=== PATIENT | female | born 1950 | race Caucasian/White ===

== ENCOUNTER 2020-07-14 13:11 | Inpatient (IN) | payer BC, MEDICARE ==
[~2020-07-14] VITALS: Ht 160 cm; Wt 108.2 kg
[~2020-07-14 13:11] MED LIST: LISI40TA4 PO
[2020-07-14 14:03] LABS: BASOPHILS # (AUTO) 0.1 X10'3 (0-0.2); BASOPHILS % (AUTO) 0.9 % (0-1); EOSINOPHILS # (AUTO) 0.2 X10'3 (0-0.9); EOSINOPHILS % (AUTO) 1.6 % (0-6); HEMATOCRIT 40.7 % (35.0-45.0); HEMOGLOBIN 13.9 g/dl (12.0-16.0); LYMPHOCYTES # (AUTO) 2.8 X10'3 (1.1-4.8); LYMPHOCYTES % (AUTO) 28.2 % (21-51); MEAN CORPUSCULAR HEMOGLOBIN 29.8 PG (27.0-31.0); MEAN CORPUSCULAR HGB CONC 34.1 g/dL (33.0-36.5); MEAN CORPUSCULAR VOLUME 87.4 FL (78-98); MEAN PLATELET VOLUME 8.1 FL (7.4-10.4); MONOCYTES # (AUTO) 0.5 X10'3 (0-0.9); MONOCYTES % (AUTO) 4.7 % (2-12); NEUTROPHILS # (AUTO) 6.3 X10'3 (1.8-7.7); NEUTROPHILS % (AUTO) 64.6 % (42-75); PLATELET COUNT 268 X10'3 (140-440); RED BLOOD COUNT 4.66 X10'6 (4.20-5.60); RED CELL DISTRIBUTION WIDTH 13.3 % (11.5-14.5); WHITE BLOOD COUNT 9.8 X10'3 (4.5-11.0)
[2020-07-14 14:17] LABS: PARTIAL THROMBOPLASTIN TIME 29 SECONDS (22-32)
[2020-07-14 14:18] LABS: ALANINE AMINOTRANSFERASE 26 U/L (12-78); ALBUMIN 4.1 G/DL (3.4-5.0); ALBUMIN/GLOBULIN RATIO 1.1 (1.1-1.5); ALKALINE PHOSPHATASE 101 IU/L (46-116); ANION GAP 9 (8-16); ASPARTATE AMINO TRANSFERASE 17 U/L (10-37); BILIRUBIN,TOTAL 0.5 MG/DL (0.1-1.0); BLOOD UREA NITROGEN 19 MG/DL (7-18); BUN/CREATININE RATIO 18.6 (6.6-38.0); CHLORIDE 105 MMOL/L (99-107); CREATININE 1.02 MG/DL (0.40-0.90); GLUCOSE 86 MG/DL (70-104); POTASSIUM 3.9 MMOL/L (3.5-5.1); SODIUM 141 MMOL/L (135-145); TOTAL PROTEIN 7.9 G/DL (6.4-8.2); eGFR 53 ML/MIN
[2020-07-14 14:22] LABS: TROPONIN I < 0.04 NG/ML (0.0-0.05)
[2020-07-14] MEDS ORDERED: clopidogrel 75mg tablet PO ONE (15:45)
[2020-07-14] MEDS ORDERED: aspirin 325mg tablet PO ONE (15:45)
[2020-07-14] MEDS ORDERED: LISI-644 PO (16:08)
[2020-07-14] MEDS ORDERED: INDO50CA96 PO (17:05)
[2020-07-14] MEDS ORDERED: acetaminophen 650mg rectal suppository RC PRN (17:30)
[2020-07-14] MEDS ORDERED: acetaminophen 325mg tablet PO PRN ×2 (17:30)
[2020-07-14] MEDS ORDERED: magnesium hydroxide 30ml (MOM) UD suspension PO PRN (17:30)
[2020-07-14] MEDS ORDERED: magnesium Cl slow-release 64mg tablet PO PRN (17:30)
[2020-07-14] MEDS ORDERED: magnesium 4gm in 100ml NS 100 ML IV PRN (17:30)
[2020-07-14] MEDS ORDERED: diphenhydrAMINE 25mg capsule PO PRN (17:30)
[2020-07-14] MEDS ORDERED: magnesium 2GM in 50ml NS 50 ML IV PRN (17:30)
[2020-07-14] MEDS ORDERED: bisacodyl 10mg suppository rectal RC PRN (17:30)
[2020-07-14] MEDS ORDERED: ondansetron/PF 4mg/2ml inj IV PRN (17:30)
[2020-07-14] MEDS ORDERED: mag hydrox/Alum hydrox/simeth 30ml oral suspension PO PRN (17:30)
[2020-07-14] MEDS ORDERED: potassium Cl 20 mEq SR tablet PO PRN ×2 (17:30)
[2020-07-14] MEDS ORDERED: morphine 2 MG/ML inj. syringe IV PRN ×2 (17:30)
[2020-07-14] MEDS ORDERED: HYDROcodone/acetaminophen 5mg/325mg tablet PO PRN (17:30)
[2020-07-14] MEDS ORDERED: HYDROcodone/acetaminophen 10/325mg tab PO PRN (17:30)
[2020-07-14] MEDS ORDERED: potassium CL 10mEq/100ml bag 100 ML IV PRN ×2 (17:30)
[2020-07-14] MEDS ORDERED: atorvastatin 20mg tablet PO ONE (17:40)
[2020-07-14] MEDS ORDERED: iohexol 350MG/ML 100ml bottle IV ONE (17:41)
[2020-07-14 17:48] LABS: CLARITY,URINE SLIGHTLY CLOUDY (Clear); COLOR,URINE STRAW (Yellow); GLUCOSE, URINE NEGATIVE (Neg); KETONES,URINE NEGATIVE (Neg); LEUKOCYTE ESTERASE ,URINE MODERATE (Neg); NITRITES, URINE NEGATIVE (Neg); OCCULT BLOOD,URINE SMALL (Neg); PH,URINE 6.5 (4.8-8.0); PROTEIN,URINE NEGATIVE (Neg); UROBILINOGEN,URINE 0.2 E.U/dL (0.2-1.0)
[2020-07-14 17:50] LABS: UA COLLECTION TYPE CLN CATCH MIDSTREAM
[2020-07-14] MEDS: normal saline 1000ml 1,000 ML IV SCH (18:05)
[2020-07-14 18:07] LABS: CHOL/HDL RATIO 4.4 (0.00-4.99); CHOLESTEROL 202 MG/DL (0-200); HDL CHOLESTEROL 46 MG/DL (35-60); LDL CHOLESTEROL 140 MG/DL (50-100); TRIGLYCERIDES 152 MG/DL (20-135)
[2020-07-14 18:14] LABS: HEMOGLOBIN A1C 5.8 % (4.5-6.2)
[2020-07-14 18:15] LABS: BACTERIA,URINE FEW /HPF (Neg); MUCUS STRANDS NONE SEEN /LPF (Neg); SQUAMOUS EPITHELIAL CELL,UR FEW /LPF (FEW)
[2020-07-14] MEDS ORDERED: hydrALAZINE 20mg/ml inj. IV ONE (18:15)
[2020-07-14] MEDS ORDERED: hydrALAZINE 20mg/ml inj. IV PRN (18:20)
[2020-07-14 19:00] VITALS: BP 147/66
[2020-07-14] MEDS: K and/or MAG REPLACEMENT MC SCH (19:49)
[2020-07-14] MEDS: heparin, porcine 5000 units/ml vial SQ SCH (19:54)
[2020-07-14] MEDS: amLODIPine 5mg tablet PO SCH (21:36)
[2020-07-14] MEDS: chlorthalidone 25mg tablet PO SCH (21:37)
[2020-07-14 22:00] VITALS: BP 151/70
[2020-07-14] MEDS: CefTRIAXone/D5W-Rocephin 1gm 50 ML IV SCH (23:32)
[2020-07-15] VITALS (12 sets, daily range): BP systolic 120–187; BP diastolic 54–115
--- NOTE | 2020-07-15 03:41 | NUR ---
reviewed and agree with SRN assessment findings;
--- NOTE | 2020-07-15 03:42 | NUR ---
reviewed and agree with SRN assessment findings
[2020-07-15] MEDS: normal saline 1000ml 1,000 ML IV SCH ×2 (04:30→16:24)
[2020-07-15 06:12] LABS: BASOPHILS # (AUTO) 0.1 X10'3 (0-0.2); BASOPHILS % (AUTO) 0.7 % (0-1); EOSINOPHILS # (AUTO) 0.1 X10'3 (0-0.9); EOSINOPHILS % (AUTO) 1.3 % (0-6); HEMATOCRIT 37.4 % (35.0-45.0); HEMOGLOBIN 12.8 g/dl (12.0-16.0); LYMPHOCYTES # (AUTO) 2.6 X10'3 (1.1-4.8); LYMPHOCYTES % (AUTO) 25.2 % (21-51); MEAN CORPUSCULAR HGB CONC 34.4 g/dL (33.0-36.5); MEAN CORPUSCULAR VOLUME 87.3 FL (78-98); MEAN PLATELET VOLUME 8.4 FL (7.4-10.4); MONOCYTES # (AUTO) 0.5 X10'3 (0-0.9); MONOCYTES % (AUTO) 4.6 % (2-12); NEUTROPHILS # (AUTO) 7.1 X10'3 (1.8-7.7); NEUTROPHILS % (AUTO) 68.2 % (42-75); PLATELET COUNT 267 X10'3 (140-440); RED BLOOD COUNT 4.28 X10'6 (4.20-5.60); RED CELL DISTRIBUTION WIDTH 13.4 % (11.5-14.5); WHITE BLOOD COUNT 10.4 X10'3 (4.5-11.0)
[2020-07-15 06:28] LABS: ALANINE AMINOTRANSFERASE 19 U/L (12-78); ALBUMIN 3.5 G/DL (3.4-5.0); ALKALINE PHOSPHATASE 87 IU/L (46-116); ANION GAP 9 (8-16); ASPARTATE AMINO TRANSFERASE 12 U/L (10-37); BILIRUBIN,TOTAL 0.6 MG/DL (0.1-1.0); BLOOD UREA NITROGEN 16 MG/DL (7-18); CALCIUM 8.3 MG/DL (8.5-10.1); CHLORIDE 106 MMOL/L (99-107); CHOL/HDL RATIO 4.1 (0.00-4.99); CHOLESTEROL 178 MG/DL (0-200); CREATININE 0.89 MG/DL (0.40-0.90); GLUCOSE 104 MG/DL (70-104); HDL CHOLESTEROL 43 MG/DL (35-60); LDL CHOLESTEROL 127 MG/DL (50-100); PHOSPHORUS 3.6 MG/DL (2.3-4.5); POTASSIUM 3.6 MMOL/L (3.5-5.1); SODIUM 140 MMOL/L (135-145); TOTAL CARBON DIOXIDE 24.7 MMOL/L (24-32); TRIGLYCERIDES 121 MG/DL (20-135); eGFR 63 ML/MIN
--- NOTE | 2020-07-15 06:56 | NUR ---
Patient in room ORTHO 4020. I have received report from Christy Blake and had the opportunity to ask questions and assume patient care.
[2020-07-15] MEDS: aspirin 81mg tablet.DR PO SCH (07:26)
[2020-07-15] MEDS: chlorthalidone 25mg tablet PO SCH (07:26)
[2020-07-15] MEDS: atorvastatin 20mg tablet PO SCH (07:26)
[2020-07-15] MEDS: amLODIPine 5mg tablet PO SCH (07:27)
[2020-07-15] MEDS: heparin, porcine 5000 units/ml vial SQ SCH ×2 (07:28→20:17)
[2020-07-15] MEDS: CefTRIAXone/D5W-Rocephin 1gm 50 ML IV SCH (07:31)
[2020-07-15] MEDS ORDERED: lisinopril 20mg tablet PO SCH (08:00)
[2020-07-15] MEDS ORDERED: atorvastatin 10mg tablet PO SCH (08:00)
[2020-07-15] MEDS: K and/or MAG REPLACEMENT MC SCH ×2 (08:00→20:00)
[2020-07-15] MEDS ORDERED: lisinopril 20mg tablet PO ONE (12:40)
--- NOTE | 2020-07-15 15:00 | NUR ---
Orthostatic systolic Blood pressure drop greater than 20mmgh. informed. PAGER ID: [phone] MESSAGE: [facility]/neuro [id number]. Pt: Medardo. Rm: [id number]. FYI: Orthostatic SBP drop 29mmhg, with increased HR 67 to 81 from laying down to standing up. thanks
--- NOTE | 2020-07-15 17:51 | NUR ---
Blood pressure 182/81 HR 59 at rest. PRN Hydralazine given.
--- NOTE | 2020-07-15 18:33 | NUR ---
Problems reprioritized. Patient report given, questions answered & plan of care reviewed with GWYN Blake. Recheck BP 145/59 HR 66.
[2020-07-15] MEDS: lactobacillus rhamnosus 10,000 MMU CELLS/CAPSULE PO SCH (20:14)
[2020-07-16 02:00] VITALS: BP 156/61
--- NOTE | 2020-07-16 05:12 | NUR ---
reviewed and agree with SRN assessment
[2020-07-16 06:00] VITALS: BP 157/62
--- NOTE | 2020-07-16 06:24 | NUR ---
Problems reprioritized. Patient report given, questions answered & plan of care reviewed with GWYN Lemon.
[2020-07-16 06:36] LABS: BASOPHILS # (AUTO) 0.1 X10'3 (0-0.2); BASOPHILS % (AUTO) 0.8 % (0-1); EOSINOPHILS # (AUTO) 0.2 X10'3 (0-0.9); EOSINOPHILS % (AUTO) 1.6 % (0-6); HEMATOCRIT 39.3 % (35.0-45.0); HEMOGLOBIN 13.5 g/dl (12.0-16.0); LYMPHOCYTES # (AUTO) 2.9 X10'3 (1.1-4.8); LYMPHOCYTES % (AUTO) 25.5 % (21-51); MEAN CORPUSCULAR HEMOGLOBIN 30.2 PG (27.0-31.0); MEAN CORPUSCULAR HGB CONC 34.3 g/dL (33.0-36.5); MEAN CORPUSCULAR VOLUME 87.9 FL (78-98); MEAN PLATELET VOLUME 8.2 FL (7.4-10.4); MONOCYTES # (AUTO) 0.6 X10'3 (0-0.9); MONOCYTES % (AUTO) 5.2 % (2-12); NEUTROPHILS # (AUTO) 7.5 X10'3 (1.8-7.7); NEUTROPHILS % (AUTO) 66.9 % (42-75); PLATELET COUNT 271 X10'3 (140-440); RED BLOOD COUNT 4.47 X10'6 (4.20-5.60); RED CELL DISTRIBUTION WIDTH 13.7 % (11.5-14.5); WHITE BLOOD COUNT 11.3 X10'3 (4.5-11.0)
[2020-07-16 06:47] LABS: ALANINE AMINOTRANSFERASE 18 U/L (12-78); ALBUMIN 3.6 G/DL (3.4-5.0); ALKALINE PHOSPHATASE 89 IU/L (46-116); ANION GAP 9 (8-16); ASPARTATE AMINO TRANSFERASE 12 U/L (10-37); BILIRUBIN,TOTAL 0.8 MG/DL (0.1-1.0); BLOOD UREA NITROGEN 17 MG/DL (7-18); BUN/CREATININE RATIO 17.9 (6.6-38.0); CHLORIDE 106 MMOL/L (99-107); CREATININE 0.95 MG/DL (0.40-0.90); GLUCOSE 98 MG/DL (70-104); MAGNESIUM 2.1 MG/DL (1.5-2.4); PHOSPHORUS 3.6 MG/DL (2.3-4.5); POTASSIUM 3.7 MMOL/L (3.5-5.1); SODIUM 140 MMOL/L (135-145); TOTAL CARBON DIOXIDE 24.8 MMOL/L (24-32); TOTAL PROTEIN 7.1 G/DL (6.4-8.2); eGFR 58 ML/MIN
[2020-07-16] MEDS: CefTRIAXone/D5W-Rocephin 1gm 50 ML IV SCH (07:53)
[2020-07-16] MEDS: aspirin 81mg tablet.DR PO SCH (07:54)
[2020-07-16] MEDS: lactobacillus rhamnosus 10,000 MMU CELLS/CAPSULE PO SCH (07:54)
[2020-07-16] MEDS: chlorthalidone 25mg tablet PO SCH (07:54)
[2020-07-16] MEDS: atorvastatin 20mg tablet PO SCH (07:55)
[2020-07-16] MEDS: amLODIPine 5mg tablet PO SCH (07:55)
[2020-07-16] MEDS: heparin, porcine 5000 units/ml vial SQ SCH (07:56)
[2020-07-16] MEDS: K and/or MAG REPLACEMENT MC SCH (08:00)
[2020-07-16] MEDS ORDERED: lisinopril 20mg tablet PO SCH (08:00)
[2020-07-16 10:00] VITALS: BP 139/56
[2020-07-16] MEDS ORDERED: LISI-600 PO (10:16)
[2020-07-16] MEDS ORDERED: CHLO25TA11 PO (10:16)
[2020-07-16] MEDS ORDERED: ATOR20TA66 PO (10:16)
[2020-07-16] MEDS ORDERED: NOR5T PO (10:16)
[2020-07-16] MEDS ORDERED: CEFD300C3 PO (10:16)
[2020-07-16] MEDS ORDERED: ASPI-1071 PO (10:16)
[2020-07-16] MEDS ORDERED: LACT1CAP26 PO (10:16)
--- NOTE | 2020-07-16 11:30 | NUR ---
Received discharge orders per Dr. Avila. IV dc'd from RFA with cannula intact. Held pressure approximately 10 minutes. Applied bandaid. Reviewed discharge orders with patient. Discharge medications called to [facility] per pt request. Transported via w/c to front entrance and assisted pt into private vehicle driven by son.
--- NOTE | 2020-07-17 11:00 | NUR ---
Pt was discharged yesterday. Attempted to call in discharge medications to [facility], but they were closed. TC placed to [facility] and was informed they had received the RX for all of the discharge medications as they were transmitted to them yesterday.
== END 2020-07-16 11:25 | disposition home or self-care (01) | DRG 305 ==
LOC: ER 13:13 → ED HOLD 16:20 → OBSVTOIN 17:30 → ORTHO 4S 18:52
PROVIDERS: ADMIT Family Medicine; ATTEND Family Medicine
DX: I16.1 Hypertensive emergency (principal); N39.0 Urinary tract infection, site not specified; E78.5 Hyperlipidemia, unspecified; I10 Essential (primary) hypertension; M18.11 Unilateral primary osteoarthritis of first carpometacarpal joint, right hand; Z79.82 Long term (current) use of aspirin; Z79.899 Other long term (current) drug therapy; Z80.0 Family history of malignant neoplasm of digestive organs; Z80.49 Family history of malignant neoplasm of other genital organs; Z80.8 Family history of malignant neoplasm of other organs or systems; Z85.528 Personal history of other malignant neoplasm of kidney; Z86.73 Personal history of transient ischemic attack (TIA), and cerebral infarction without residual deficits; Z87.442 Personal history of urinary calculi
CPT/HCPCS: 36415; 70450; 70496; 70498; 70544; 70551; 71045; 80053; 80061; 81001; 82948; 83036; 83735; 84100; 84443; 84484; 85025; 85610; 85651; 85730; 87081; 87088; 93306; 93880; 97116; 97161; 97530; 99285; G0378; J0360; J0696; J1644; J7030; Q9967

== ENCOUNTER 2020-12-13 08:16 | Day surgery (SDC) | payer BC, MEDICARE ==
[2020-12-07 14:17] LABS: CLARITY,URINE SLIGHTLY CLOUDY (Clear); COLOR,URINE YELLOW (Yellow); GLUCOSE, URINE NEGATIVE (Neg); KETONES,URINE NEGATIVE (Neg); LEUKOCYTE ESTERASE ,URINE SMALL (Neg); NITRITES, URINE NEGATIVE (Neg); OCCULT BLOOD,URINE SMALL (Neg); PROTEIN,URINE NEGATIVE (Neg); UROBILINOGEN,URINE 0.2 E.U/dL (0.2-1.0)
[2020-12-07 14:19] LABS: UA COLLECTION TYPE CLN CATCH MIDSTREAM
[2020-12-07 14:22] LABS: BASOPHILS # (AUTO) 0.1 X10'3 (0-0.2); BASOPHILS % (AUTO) 0.8 % (0-1); EOSINOPHILS # (AUTO) 0.2 X10'3 (0-0.9); EOSINOPHILS % (AUTO) 2.3 % (0-6); LYMPHOCYTES % (AUTO) 30.3 % (21-51); MEAN CORPUSCULAR HEMOGLOBIN 30.2 PG (27.0-31.0); MEAN CORPUSCULAR HGB CONC 34.4 g/dL (33.0-36.5); MEAN PLATELET VOLUME 7.7 FL (7.4-10.4); MONOCYTES # (AUTO) 0.6 X10'3 (0-0.9); NEUTROPHILS # (AUTO) 6.1 X10'3 (1.8-7.7); NEUTROPHILS % (AUTO) 60.6 % (42-75); PRE OP HEMOGLOBIN 12.7 g/dL (12.0-16.0); PRE OP PLATELET COUNT 339 X10'3 (140-440); RED CELL DISTRIBUTION WIDTH 13.4 % (11.5-14.5)
[2020-12-07 14:25] LABS: BACTERIA,URINE 1+ /HPF (Neg); RENAL CELLS, URINE FEW /HPF; SQUAMOUS EPITHELIAL CELL,UR FEW /LPF (FEW); TRANSITIONAL EPI CELLS,URINE MODERATE /HPF; WBC CLUMPS,URINE FEW /HPF (NEGATIVE); WBC,URINE 0-4 /HPF (0-4)
[2020-12-07 14:31] LABS: PRE OP PROTIME 10.8 SECONDS (9.0-12.0)
[2020-12-07 14:34] LABS: ALBUMIN 3.7 G/DL (3.4-5.0); ALBUMIN/GLOBULIN RATIO 0.9 (1.1-1.5); ALKALINE PHOSPHATASE 108 IU/L (46-116); BLOOD UREA NITROGEN 23 MG/DL (7-18); BUN/CREATININE RATIO 22.3 (6.6-38.0); CALCIUM 9.4 MG/DL (8.5-10.1); CHLORIDE 103 MMOL/L (99-107); CREATININE 1.03 MG/DL (0.40-0.90); PRE OP ALT 30 U/L (30-65); PRE OP ANION GAP 11 (8-16); PRE OP AST 17 U/L (10-37); PRE OP BILIRUB, TOTAL 0.5 MG/DL (0.0-1.0); PRE OP GLUCOSE 103 MG/DL (70-104); PRE OP POTASSIUM 3.7 MMOL/L (3.4-5.1); PRE OP SODIUM 140 MMOL/L (135-145); TOTAL CARBON DIOXIDE 25.8 MMOL/L (24-32); TOTAL PROTEIN 7.8 G/DL (6.4-8.2); eGFR 53 ML/MIN
[2020-12-13] VITALS (19 sets, daily range): BP systolic 127–188; BP diastolic 54–99
[~2020-12-13] VITALS: Ht 160 cm; Wt 106.0 kg
[~2020-12-13 08:16] MED LIST changes: +APIX5TAB3 PO; +ATOR20TA66 PO; +CHLO25TA10 PO; +DILT-35 PO; +INDOCYANINE GREEN 25 MG/10 ML VIAL IV ONE; +LISI-600 PO; -LISI40TA4 PO; +ceFOXitin 2GM-NS 100mL ADDvant 100 ML IV ONE; +famotidine 20mg tablet PO ONE; +ringers solution, lacted 1,000 ML IV SCH
[2020-12-13] MEDS ORDERED: BUPIVAcaine/PF 2.5 mg/ml (0.25%) 30ml vial ONE (09:11)
[2020-12-13] MEDS ORDERED: ePHEDrine 50MG/ML INJ. ONE (09:35)
[2020-12-13] MEDS ORDERED: fentaNYL/PF 50MCG/1 ML 2ML syringe ONE (09:35)
[2020-12-13] MEDS ORDERED: sevoflurane 250ml liquid IH ONE (09:35)
[2020-12-13] MEDS ORDERED: propofol inj 20 ML IV ONE (10:25)
[2020-12-13] MEDS ORDERED: LIDOcaine 2% (20mg/ml) 5ml vial ONE (10:25)
[2020-12-13] MEDS ORDERED: neostigmine methylsulfate 1 MG/ML 10ml vial ONE (10:25)
[2020-12-13] MEDS ORDERED: glycopyrrolate 0.2mg/ml inj ONE (10:25)
[2020-12-13] MEDS ORDERED: dexamethasone sod phosphate 4mg/ml inj. ONE (10:25)
[2020-12-13] MEDS ORDERED: ondansetron/PF 4mg/2ml inj ONE (10:25)
[2020-12-13] MEDS ORDERED: rocuronium 10mg/ml inj IV ONE (10:25)
[2020-12-13] MEDS ORDERED: acetaminophen 1,000mg/100ml IV 100 ML IV ONE (10:28)
[2020-12-13] MEDS ORDERED: sugammadex 200mg/2ml injection IV ONE (10:37)
--- NOTE | 2020-12-13 10:40 | NUR ---
Received from OR via kt, accompanied by Anesthesiologist Massimo and report given by Anesthesiolgist. Lap sites x4 to abdomen with large bandaids CDI. 20G to left forearm IVF LR at 100cc/hr. All VS stable and sats 100% with mask to 10L.
[2020-12-13] MEDS ORDERED: ringers solution, lacted 1,000 ML IV SCH (10:55)
[2020-12-13] MEDS ORDERED: ondansetron/PF 4mg/2ml inj IV PRN (10:55)
[2020-12-13] MEDS ORDERED: morphine 2 MG/ML inj. syringe IV PRN (10:55)
[2020-12-13] MEDS ORDERED: HYDROmorphone/PF 0.2 MG/ML SYRINGE IV PRN ×2 (10:55)
[2020-12-13] MEDS ORDERED: atropine 1 MG/1 ML vial IV ONE (11:30)
--- NOTE | 2020-12-13 11:50 | NUR ---
Atropine given per orders from Dr Keys, after bradycardic heart rate and overall status reported to .
--- NOTE | 2020-12-13 14:10 | NUR ---
Pt discharged to vehicle by wheelchair without incident after IV removed. Dressings remain CDI. Pt alert and responsive. Pt and on phone bother verbalized understanding of all DC isntructions. Pt to picker tender helper pain pills from pharmacy. All belongings returned to patient.
== END 2020-12-13 14:10 | disposition home or self-care (01) ==
LOC: PAS 08:16
PROVIDERS: ATTEND Surgery
DX: K80.10 Calculus of gallbladder with chronic cholecystitis without obstruction (principal); I10 Essential (primary) hypertension; I48.91 Unspecified atrial fibrillation; Z90.5 Acquired absence of kidney; Z80.8 Family history of malignant neoplasm of other organs or systems; Z98.51 Tubal ligation status; Z88.0 Allergy status to penicillin; Z88.2 Allergy status to sulfonamides; Z91.018 Allergy to other foods; Z96.60 Presence of unspecified orthopedic joint implant; Z20.822 Contact with and (suspected) exposure to COVID-19
CPT/HCPCS: 36415; 47562; 80053; 81001; 82948; 85025; 85610; 85730; 87077; 87088; 87635; C9399; J0131; J0461; J0694; J1100; J1170; J2001; J2270; J2405; J2704; J2710; J3010; J3490; J7120; S2900; A4215; A4618; A7000